=== PATIENT | male | born 1995 | race Caucasian/White ===

== ENCOUNTER 2017-02-03 09:14 | Emergency (ER) | payer BC, OTHER ==
--- NOTE | 2017-02-03 10:48 | UC ---
Lower Extremity/Ankle HPI - HPI Summary HPI Summary: complaint of left 5th toe pain that started approx 14 hours ago he feel forward over his toe constant non radiating aching pain painful to ambulate resting reduces the pain hasn't taken anything for pain - History of Current Complaint Chief Complaint: UCLowerExtremity Stated Complaint: FOOT COMPLAINT Time Seen by Provider: 02/03/17 10:38 Hx Obtained From: Patient - Allergies/Home Medications Allergies/Adverse Reactions: Allergies Allergy/AdvReac Type Severity Reaction Status Date / Time No Known Allergies Allergy Verified 02/03/17 10:18 PMH/Surg Hx/FS Hx/Imm Hx Previously Healthy: Yes - Surgical History Surgical History: None - Family History Known Family History: Negative: Cardiac Disease, Hypertension, Diabetes - Social History Occupation: Employed Full-time Lives: With Family Alcohol Use: Weekly Alcohol Amount: 2-3 weekly Substance Use Type: Marijuana Substance Use Comment - Amount & Last Used: farrah Smoking Status (MU): Former Smoker - Immunization History Most Recent Influenza Vaccination: none Review of Systems Constitutional: Negative Skin: Negative Eyes: Negative ENT: Negative Respiratory: Negative Cardiovascular: Negative Gastrointestinal: Negative Genitourinary: Negative Motor: Negative Neurovascular: Negative Musculoskeletal: Other: - left great toe pain Neurological: Negative Psychological: Negative All Other Systems Reviewed And Are Negative: Yes Physical Exam Triage Information Reviewed: Yes Appearance: No Pain Distress, Well-Nourished Vital Signs Reviewed: Yes Eyes: Positive: Conjunctiva Clear ENT: Positive: Pharynx normal, TMs normal Neck: Positive: No Lymphadenopathy Respiratory: Positive: Lungs clear, Normal breath sounds, No respiratory distress, No accessory muscle use Cardiovascular: Positive: RRR, No Murmur Abdomen Description: Positive: Nontender, Soft Bowel Sounds: Positive: Present Musculoskeletal: Positive: Other: - LLE- 5th toe with eccymosis and tenderness throughout toe- no metatarsal tenderness ,limited rOM in 5th toe, non tender with inversion & eversion of ankle [place] test negative. Neurological Exam: Normal Psychological Exam: Normal Skin Exam: Normal Lower Extremity Course/Dx - Differential Dx/Diagnosis Differential Diagnosis/HQI/PQRI: Dislocation, Fracture (Closed), Sprain, Strain Provider Diagnoses: non displaced fracture of proximal phalanx left 5th toe Discharge - Discharge Plan Condition: Stable Disposition: HOME Patient Education Materials: Toe Fracture (ED) Referrals: Sarkis Chaney MD [Medical Doctor] - Additional Instructions: Please call orthopedic nurse for an appointment. They will evaluate and determine your treatment. It is important to keep weight off of your fracture. Use wear splint until you are seen by orthopedics. Take acetaminophen or ibuprofen to control pain and reduce inflammation. Please review your discharge instructions. If your symptoms worsen call orthopedic nurse or return to urgent care.
[2017-02-03 11:07] VITALS: BP 110/65
--- NOTE | 2017-02-03 11:12 | RAD ---
INDICATION: LEFT FOOT INJURY COMPARISON: None TECHNIQUE: AP, lateral, and oblique views were obtained. FINDINGS: There is a transverse fraction of the midportion of the proximal phalanx of the fifth toe with mild angular deformity. No other fractures are evident. The joint spaces are maintained. The soft tissues are mildly prominent about the fracture site but are otherwise normal. IMPRESSION: FRACTURE OF THE PROXIMAL PHALANX OF THE FIFTH TOE
== END 2017-02-03 11:32 | disposition home or self-care (01) ==
LOC: UCEAST 09:14
DX: S92.912A Unspecified fracture of left toe(s), initial encounter for closed fracture (principal); F12.90 Cannabis use, unspecified, uncomplicated; Z87.891 Personal history of nicotine dependence; W18.30XA Fall on same level, unspecified, initial encounter
CPT/HCPCS: 99212; G0463

== ENCOUNTER 2017-03-29 10:06 | Emergency (ER) | payer BC ==
[2017-03-29 10:15] VITALS: BP 116/61
--- NOTE | 2017-03-29 12:05 | UC ---
minor Wade Timothy, scribed for Alka Pryor MD on 03/29/17 at 1119 . Skin Complaint HPI - HPI Summary HPI Summary: Enrique Ventura is a 21 yo male presenting to [facility] with a pruritic bug bite causing 1/10 ache on his left groin area first noticed 03/24/17. he notes that it has grown since he first noticed it. He states he has made no changes in his lifestyle; he has not worn any new clothes or changed detergents. He notes some fever, chills, nausea, burning dysuria without discharge as of yesterday. He also has some low back and neck pain, which he believes may be due to physical labor. He states his lymph nodes are swollen in groin. He denies JANSEN, ear pain, any penile sores, or abd pain. He is accompanied by his friend Bryce. He denies any trauma. He states he has not had any similar episodes in the past. He denies any PMHx. Pt medication list reviewed this visit. - History of Current Complaint Chief Complaint: UCRespiratory Time Seen by Provider: 03/29/17 11:20 Stated Complaint: BUG BITE Hx Obtained From: Patient Onset/Duration: Sudden Onset, Lasting Days, Still Present Skin Exposure Onset/Duration: Days Ago Timing: Constant Onset Severity: Moderate Current Severity: Moderate Pain Intensity: 1 Pain Scale Used: 0-10 Numeric Location: Other - left gorin area Character: Pruritus, Painful Associated Signs & Symptoms: Positive: Nausea, Fever, Chills, Rash - bug bite. Negative: Abdominal Pain Related History: Insect Bite/Sting - Allergy/Home Medications Allergies/Adverse Reactions: Allergies Allergy/AdvReac Type Severity Reaction Status Date / Time No Known Allergies Allergy Verified 02/03/17 10:18 Review of Systems Constitutional: Fever, Chills Skin: Rash Eyes: Negative ENT: Other - swollen lymp nodes Respiratory: Negative Cardiovascular: Negative Gastrointestinal: Nausea Genitourinary: Dysuria Motor: Negative Neurovascular: Negative Musculoskeletal: Negative Neurological: Negative Psychological: Negative All Other Systems Reviewed And Are Negative: Yes PMH/Surg Hx/FS Hx/Imm Hx Previously Healthy: Yes - Surgical History Surgical History: None - Family History Known Family History: Negative: Cardiac Disease, Hypertension, Diabetes - Social History Occupation: Employed Part-time Lives: With Family Alcohol Use: Weekly Alcohol Amount: 2-3 weekly Substance Use Type: Marijuana Substance Use Comment - Amount & Last Used: farrah Smoking Status (MU): Never Smoked Tobacco - Immunization History Most Recent Influenza Vaccination: none Physical Exam Triage Information Reviewed: Yes Appearance: Well-Appearing, No Pain Distress Vital Signs: Initial Vital Signs Temp 98.5 F 03/29/17 10:11 Pulse 69 03/29/17 10:11 Resp 18 03/29/17 10:11 BP 116/61 03/29/17 10:11 Pulse Ox 100 03/29/17 10:11 Vital Signs Reviewed: Yes Eye Exam: Normal ENT Exam: Normal ENT: Positive: Hearing grossly normal, TMs normal Dental Exam: Normal Neck exam: Normal Neck: Positive: 1 Respiratory Exam: Normal Cardiovascular Exam: Normal Abdominal Exam: Normal Abdomen Description: Positive: No Organomegaly, Soft, Bruit, Distended, Other: - exam with RN ham No eternal lesions, penile drainage No testicular masses, discomfort, no hernia Musculoskeletal Exam: Normal Musculoskeletal: Positive: Strength Intact Neurological Exam: Normal Neurological: Positive: Alert Psychological Exam: Normal Skin: Positive: Other - Pt with erythema left inguinal area extending laterally toward iliac crest - mild warmth, no fluctane, no drainage, no induration Pt with mild increased left ingunal LA with minimal discomfort Re-Evaluation - Re-Evaluation First Eval Re-Evaluation Time: 11:37 Change: Unchanged Comment: genitalia exam was performed Course/Dx - Course Course Of Treatment: Enrique Ventura is a 21 yo male presenting to [facility] with a rash on his left groin with and swollen lymph nodes, first noteiced 03/24/17.Pt reports dysuria x 1 days. will check urine. gc/ch. start doxy. pcp referral. return precautions discussed. Pt in agreement with plan - Differential Diagnoses - Skin Complaint Differential Diagnoses: Tick Born Illness - Diagnoses Provider Diagnoses: left inguinal cellulitis Discharge - Discharge Plan Condition: Stable Disposition: HOME Prescriptions: DOXYcycline CAP(*) [DOXYcycline 100MG CAP(*)] 100 mg PO BID #20 cap Patient Education Materials: Cellulitis (ED) Referrals: [facility] [place] PHYSICIAN REFERRAL [Outside] - 2 Days Additional Instructions: - Take antibiotics as prescribed until gone - Apply warm soaks to your groin area - Stay well hydrated - drink plenty of non-alcoholic, non-caffinated beverages - Your urine has been sent for additional testing - if you need a different antibiotic you will be called by a care merchandising team lead - Monitor your reddness - if you develop increased reddness, red streaking, fevers greater than 100.4 or any other concerns - you should return here or go to the emergency department for additional testing - You have been given the contact information for the physician referral center - they can assist you in scheduling a follow-up appointment Please follow up with the primary care physician provided regarding your visit to urgent care today. Return to urgent care with any new symptoms or questions or concerns. The documentation as recorded by the minor mcgowan Timothy accurately reflects the service I personally performed and the decisions made by , Alka Pryor MD.
== END 2017-03-29 12:06 | disposition home or self-care (01) ==
LOC: UCEAST 10:06
DX: L03.314 Cellulitis of groin (principal)
CPT/HCPCS: 81003; 87491; 87591; 99212; G0463